=== PATIENT | female | born 1965 | race Caucasian/White ===

== ENCOUNTER 2016-11-14 07:46 | Emergency (ER) | payer SELFPAY ==
[2016-11-14] MEDS ORDERED: OXYCODONE-ACETAMINOPHEN 5-325 MG TABLET PO ONE (08:29)
[2016-11-14] MEDS ORDERED: KETOROLAC TROMETHAMINE 60 MG/2 ML SDV IM ONE (08:29)
--- NOTE | 2016-11-14 08:29 | ER Document Report ---
ED GI/ - General Mode of Arrival: Ambulatory Information source: Patient TRAVEL OUTSIDE OF THE [place] IN LAST 30 DAYS: No - HPI Patient complains to provider of: Flank pain Associated symptoms: Other - See above - General Chief Complaint: Flank Pain Stated Complaint: flank pain Time Seen by Provider: 11/14/16 08:18 Notes: Patient is a 51-year-old female who presents to the emergency department complaining of right-sided flank pain onset at 1800 yesterday. Patient also complains of nausea, dysuria starting last night as well as vomiting at around 0200 this morning and lower abdominal pain. Patient states she got AZO from the drugstore last night to help ease the pain with no relief. Patient states this morning she took one of her 's Percocets to help with the pain. Patient denies fever. Patient reports she has had UTIs in the past. Patient is not currently on any medications. Patient does not have a PCP. (NICK RODRIGUEZ) - Related Data Allergies/Adverse Reactions: No Known Allergies Allergy (Verified 11/14/16 07:51) Past Medical History - General Information source: Patient - Social History Smoking Status: Unknown if Ever Smoked Family History: Reviewed & Not Pertinent Patient has suicidal ideation: No Patient has homicidal ideation: No Musculoskeltal Medical History: Reports Hx Musculoskeletal Trauma Skin Medical History: Reports Hx Cellulitis Traumatic Medical History: Reports: Hx Fractures Past Surgical History: Reports: Hx Section, Hx Hysterectomy, Hx Orthopedic Surgery - right ankle, Hx Tubal Ligation - Immunizations Immunizations up to date: Yes Hx Diphtheria, Pertussis, Tetanus Vaccination: Yes Review of Systems - Review of Systems Constitutional: denies: Fever EENT: No symptoms reported Cardiovascular: No symptoms reported Respiratory: No symptoms reported Gastrointestinal: See HPI, Abdominal pain, Nausea, Vomiting Genitourinary: See HPI, Dysuria, Flank pain Female Genitourinary: No symptoms reported Musculoskeletal: No symptoms reported Skin: No symptoms reported Hematologic/Lymphatic: No symptoms reported Neurological/Psychological: No symptoms reported -: Yes All other systems reviewed and negative Physical Exam - Vital signs Interpretation: Normal - General General appearance: Appears well, Alert - HEENT Head: Normocephalic, Atraumatic - Respiratory Respiratory status: No respiratory distress Chest status: Nontender Breath sounds: Normal Chest palpation: Normal - Cardiovascular Rhythm: Regular Heart sounds: Normal auscultation Murmur: No - Abdominal Inspection: Normal Distension: No distension Bowel sounds: Normal Tenderness: Tender - suprabubic tenderness to palpation Organomegaly: No organomegaly - Back Back: CVA tenderness - right - Extremities General upper extremity: Normal inspection General lower extremity: Normal inspection - Neurological Neuro grossly intact: Yes Cognition: Normal Orientation: AAOx4 [place] Coma Scale Eye Opening: Spontaneous [place] Coma Scale Verbal: Oriented [place] Coma Scale Motor: Obeys Commands [place] Coma Scale Total: 15 Speech: Normal - Psychological Associated symptoms: Normal affect, Normal mood - Skin Skin Temperature: Warm Skin Moisture: Dry Skin Color: Normal Course - Re-evaluation Re-evalutation: 11/14/16 10:30 Patient presents him on spell with a 2 day history of suprapubic pain and dysuria took some [id number] medication which turned her urine orange. Says she has a little low back pain no fever no chills had one episode of vomiting no diarrhea has a history of recurrent urinary tract infections the past but no history of kidney stones. On examination well-appearing nontoxic in no acute distress. She has no acute abdominal guarding rebound rigidity pulsatile dullness or hernias slight tenderness reproducible in the right flank area CT scan shows mild hydronephrosis but no stone she has a large urinary tract infection which I given her Rocephin for she is not septic I do not think she needs be admitted for IV antibiotics acute pyelonephritis I have however given her a follow-up physician to recheck and in 24-48 hours and specifically discussed reasons for ED return sooner 11/14/16 20:17 (SUZY POLLACK) - Vital Signs Vital signs: Temp Pulse Resp BP Pulse Ox 97.4 F 64 18 128/84 H 97 11/14/16 11:00 11/14/16 11:00 11/14/16 11:00 11/14/16 11:00 11/14/16 11:00 - Laboratory Laboratory results interpreted by me: 11/14/16 08:12 Urine Protein 30 H Urine Blood MODERATE H Urine Nitrite POSITIVE H Urine Urobilinogen 4.0 H Ur Leukocyte Esterase MODERATE H Discharge - Discharge Clinical Impression: acute urinary tract infection, low back pain Condition: Stable Disposition: HOME, SELF-CARE Additional Instructions: Low Back Pain Three out of every four people will have an episode of disabling back pain during their lifetime. Most commonly the pain is due to straining of the muscles and ligaments in the low back. Usual treatment includes: (1) Rest on a firm surface. Avoid lying on your stomach. (2) Ice pack the painful area. After a few days, gentle heat may be used intermittently to relax the area, or ice packs can be continued. (3) Medication may be needed -- muscle relaxers and antiinflammatory medicines are commonly used. (4) As the back improves, exercises are prescribed to strengthen the back and abdominal muscles. Your doctor will advise you on the proper care for your back at each stage in your recovery. You may be better in a few days -- or healing may take several weeks. If new symptoms of a "herniated disc" (radiation of pain, numbness, or tingling down the back of the leg or weakness in the leg) occur, you should be re-examined. Further testing may be necessary.Urinary Tract Infection Your evaluation indicates that you have a urinary tract infection. This is due to germs growing in the bladder. This is a common problem. This infection usually responds quickly to antibiotics. Your antibiotic should be taken exactly as prescribed. Drink plenty of fluids -- three to four quarts a day. Occasionally, a bladder anesthetic will be prescribed to help stop the feeling of urgency until the antibiotic has a chance to clear the infection. This may cause your urine to be dark orange. Certain urine infections require a culture. If the doctor obtained a culture, the results will be back in two days. You should call to see if a change in treatment is needed. A repeat urinalysis after you finish treatment is often recommended. The physician will let you know if further testing is required. Call the doctor if you develop fever, chills, flank pain, inability to urinate, or blood in the urine. Prescriptions: Hydrocodone/Acetaminophen [[place] 5-325 mg Tablet] 1 tab PO TID #8 tablet Nitrofurantoin/Nitrofuran Mac [Macrobid 100 mg Capsule] 1 tab PO BID #20 capsule Referrals: [facility] [Provider Group] (Call for appointment to be seen in follow-up in 3-4 days return for increasing worsening or new symptoms) Yareli Attestation: 11/14/16 10:30 I personally performed the services described in the documentation reviewed the documentation recorded by my scribe in my presence and it accurately and completely records my words and actions (SUZY POLLACK) Scribe Documentation - Scribe Written by Scribe:: yareli Lau, 11/14/16, 916 acting as scribe for :: Topher
[2016-11-14] MEDS ORDERED: ONDANSETRON 4 MG TAB.RAPDIS PO ONE (08:30)
[2016-11-14 08:41] LABS: APPEARANCE,URINE SLIGHTLY-CLOUDY; BILIRUBIN,URINE NEGATIVE (NEGATIVE); GLUCOSE, URINE NEGATIVE (NEGATIVE); KETONES,URINE NEGATIVE (NEGATIVE); LEUKOCYTE ESTERASE,URINE MODERATE (NEGATIVE); NITRITE,URINE POSITIVE (NEGATIVE); PROTEIN,URINE 30 mg/dL (NEGATIVE); URINE SPECIFIC GRAVITY 1.009
[2016-11-14] MEDS ORDERED: CEFTRIAXONE INJ 1000 MG VIAL IM ONE (08:55)
[2016-11-14] MEDS ORDERED: LIDOCAINE 1% INJ-PF (10 MG/ML) 30 ML SDV ONE (09:37)
[2016-11-14 11:02] VITALS: BP 128/84
== END 2016-11-14 11:02 | disposition home or self-care (01) ==
LOC: ER 07:46
DX: N39.0 Urinary tract infection, site not specified (principal); M54.5 Low back pain; R10.9 Unspecified abdominal pain; R11.2 Nausea with vomiting, unspecified; Z90.710 Acquired absence of both cervix and uterus
CPT/HCPCS: 99284; 96372; 81001; 74176; J1885; S0119; J0696

== ENCOUNTER 2017-06-14 10:16 | Emergency (ER) | payer SELFPAY ==
--- NOTE | 2017-06-14 10:40 | ER Document Report ---
ED General - General Chief Complaint: Flank Pain Stated Complaint: URINARY SYMPTOMS Time Seen by Provider: 06/14/17 10:38 Mode of Arrival: Ambulatory Information source: Patient Notes: Patient states that she is having right flank pain that radiates into the right lower quadrant. She states she has pain and pressure with urination. She denies any vaginal symptoms. No problems with bowel movements. No fevers. She has some nausea but no vomiting. The pain is worse with urination and better when she does not urinate. It is a sharp and pressure-like sensation and is moderate in intensity. TRAVEL OUTSIDE OF THE [place] IN LAST 30 DAYS: No - Related Data Allergies/Adverse Reactions: No Known Allergies Allergy (Verified 06/14/17 10:18) Past Medical History - Social History Smoking Status: Never Smoker Chew tobacco use (# tins/day): No Frequency of alcohol use: Occasional Drug Abuse: None Family History: Reviewed & Not Pertinent Patient has suicidal ideation: No Patient has homicidal ideation: No Renal/ Medical History: Denies: Hx Peritoneal Dialysis Musculoskeltal Medical History: Reports Hx Musculoskeletal Trauma Skin Medical History: Reports Hx Cellulitis Traumatic Medical History: Reports: Hx Fractures Past Surgical History: Reports: Hx Section, Hx Hysterectomy, Hx Orthopedic Surgery - right ankle, Hx Tubal Ligation - Immunizations Immunizations up to date: Yes Hx Diphtheria, Pertussis, Tetanus Vaccination: Yes Review of Systems - Review of Systems Cardiovascular: denies: Chest pain, Dyspnea Respiratory: denies: Cough, Short of breath Gastrointestinal: denies: Abdominal pain, Constipation -: Yes All other systems reviewed and negative Physical Exam - Vital signs Vitals: Temp Pulse Resp BP Pulse Ox 97.6 F 65 16 147/87 H 97 06/14/17 10:21 06/14/17 10:21 06/14/17 10:21 06/14/17 10:21 06/14/17 10:21 Interpretation: Hypertensive - General General appearance: Appears well, Alert - HEENT Head: Normocephalic, Atraumatic Eyes: Normal Pupils: PERRL - Respiratory Respiratory status: No respiratory distress Chest status: Nontender Breath sounds: Normal Chest palpation: Normal - Cardiovascular Rhythm: Regular Heart sounds: Normal auscultation Murmur: No - Abdominal Inspection: Normal Distension: No distension Bowel sounds: Normal Tenderness: Tender, Other - bilat lq. No: Guarding, Rebound Organomegaly: No organomegaly - Back Back: Normal, Nontender - Extremities General upper extremity: Normal inspection, Nontender, Normal color, Normal ROM , Normal temperature General lower extremity: Normal inspection, Nontender, Normal color, Normal ROM , Normal temperature, Normal weight bearing. No: Geovanna's sign - Neurological Neuro grossly intact: Yes Cognition: Normal Orientation: AAOx4 [place] Coma Scale Eye Opening: Spontaneous [place] Coma Scale Verbal: Oriented [place] Coma Scale Motor: Obeys Commands [place] Coma Scale Total: 15 Speech: Normal Motor strength normal: LUE, RUE, LLE, RLE Sensory: Normal - Psychological Associated symptoms: Normal affect, Normal mood - Skin Skin Temperature: Warm Skin Moisture: Dry Skin Color: Normal Course - Vital Signs Vital signs: Temp Pulse Resp BP Pulse Ox 97.6 F 65 16 147/87 H 97 06/14/17 10:21 06/14/17 10:21 06/14/17 10:21 06/14/17 10:21 06/14/17 10:21 - Laboratory Laboratory results interpreted by me: 06/14/17 10:30 Urine Protein 30 H Urine Blood LARGE H Ur Leukocyte Esterase LARGE H Discharge - Discharge Clinical Impression: UTI (urinary tract infection) Qualifiers: Urinary tract infection type: site unspecified Hematuria presence: with hematuria Qualified Code(s): N39.0 - Urinary tract infection, site not specified ; R31.9 - Hematuria, unspecified; R31.9 - Hematuria, unspecified Condition: Stable Disposition: HOME, SELF-CARE Instructions: Urinary Tract Infection ([facility]) Additional Instructions: Your blood pressure is mildly elevated. Please have this rechecked within 1 week by your doctor. Prescriptions: Cefdinir 300 mg PO BID 7 Days #14 capsule Phenazopyridine HCl [Pyridium 200 mg Tablet] 200 mg PO TID #15 tablet Forms: Elevated Blood Pressure, Return to Work Referrals: HAYLEY KHAN MD [COMMUNITY BASED STAFF] - Follow up in 1 week
[2017-06-14 11:09] LABS: APPEARANCE,URINE CLOUDY; BILIRUBIN,URINE NEGATIVE (NEGATIVE); GLUCOSE, URINE NEGATIVE (NEGATIVE); KETONES,URINE NEGATIVE (NEGATIVE); LEUKOCYTE ESTERASE,URINE LARGE (NEGATIVE); NITRITE,URINE NEGATIVE (NEGATIVE); PROTEIN,URINE 30 mg/dL (NEGATIVE); URINE SPECIFIC GRAVITY 1.006; UROBILINOGEN,URINE NEGATIVE mg/dL (<2.0)
[2017-06-14 11:40] VITALS: BP 147/84
== END 2017-06-14 11:40 | disposition home or self-care (01) ==
LOC: ER 10:16
DX: N39.0 Urinary tract infection, site not specified (principal); R31.9 Hematuria, unspecified; R39.198 Other difficulties with micturition; R10.31 Right lower quadrant pain; R11.0 Nausea
CPT/HCPCS: 81001; 99284

== ENCOUNTER 2017-10-13 19:00 | Emergency (ER) | payer SELFPAY ==
--- NOTE | 2017-10-13 19:37 | ER Document Report ---
HPI - HPI Patient complains to provider of: right toe injury Onset: Other Onset/Duration: Sudden Quality of pain: Throbbing Severity: Severe Pain Level: 5 Context: Patient stubbed right fifth toe on Monday. Complains of pain and swelling, now bruising has extended across the second third and fourth toes. Associated Symptoms: None Exacerbated by: Movement, Walking Relieved by: Remaining still Similar symptoms previously: No Recently seen / treated by doctor: No - ROS ROS below otherwise negative: Yes Systems Reviewed and Negative: Yes All other systems reviewed and negative - CARDIOVASCULAR Cardiovascular: DENIES: Chest pain - RESPIRATORY Respiratory: DENIES: Trouble Breathing - MUSCULOSKELETAL Musculoskeletal: REPORTS: Extremity pain Notes: Right fifth toe and lateral right foot. - DERM Skin Color: Ecchymosis Past Medical History - General Information source: Patient - Social History Smoking Status: Never Smoker Frequency of alcohol use: Occasional Drug Abuse: None Lives with: Family Family History: Reviewed & Not Pertinent Musculoskeltal Medical History: Reports Hx Musculoskeletal Trauma Skin Medical History: Reports Hx Cellulitis Traumatic Medical History: Reports: Hx Fractures Past Surgical History: Reports: Hx Section, Hx Hysterectomy, Hx Orthopedic Surgery - right ankle, Hx Tubal Ligation - Immunizations Immunizations up to date: Yes Hx Diphtheria, Pertussis, Tetanus Vaccination: Yes Vertical Provider Document - CONSTITUTIONAL Agree With Documented VS: Yes Exam Limitations: No Limitations General Appearance: WD/WN, No Apparent Distress - INFECTION CONTROL TRAVEL OUTSIDE OF THE [place] IN LAST 30 DAYS: No - HEENT HEENT: Atraumatic - RESPIRATORY Respiratory: Breath Sounds Normal, No Respiratory Distress - CARDIOVASCULAR Cardiovascular: Regular Rate, Regular Rhythm - MUSCULOSKELETAL/EXTREMETIES Musculoskeletal/Extremeties: Tender, Edema, Eccymosis Notes: Bruising from second right toe to the fifth right toe - NEURO Level of Consciousness: Awake, Alert, Appropriate Notes: Neurovascular and sensation intact to right foot - DERM Integumentary: Warm, Dry Course - Re-evaluation Re-evalutation: 10/13/17 20:20 X-ray showed mildly displaced fracture at base of right fifth toe this was discussed with the patient. Toes camille taped and postop shoe applied. - Vital Signs Vital signs: Temp Pulse Resp BP Pulse Ox 98.5 F 75 16 113/98 H 100 10/13/17 19:06 10/13/17 19:06 10/13/17 19:06 10/13/17 19:06 10/13/17 19:06 Procedures - Immobilization Right Toe 5th digit Pre-Proc Neuro Vasc Exam: Normal Immobilizer type: Post-op shoe, Other - camille taped right 4-5 toes Performed by: PCT Post-Proc Neuro Vasc Exam: Normal Alignment checked and good: Yes Discharge - Discharge Clinical Impression: Toe fracture, right Qualifiers: Encounter type: initial encounter Toe: lesser toe Fracture type: closed Phalanx : proximal Fracture alignment: displaced Qualified Code(s): S92.511A - Displaced fracture of proximal phalanx of right lesser toe(s), initial encounter for closed fracture Condition: Good Disposition: HOME, SELF-CARE Additional Instructions: Keep toes camille taped for comfort Ice and elevate foot Ibuprofen 3 times a day for pain as needed, take with food Follow-up with your doctor or orthopedics if not better in 1 week Return as needed Forms: Return to Work
--- NOTE | 2017-10-13 19:59 | RADIOLOGY REPORT (SQ) ---
EXAM DESCRIPTION: FOOT RIGHT COMPLETE COMPLETED DATE/TIME: 10/13/2017 7:48 pm REASON FOR STUDY: injury COMPARISON: None. NUMBER OF VIEWS: Three views. TECHNIQUE: AP, lateral and oblique radiographic images acquired of the right foot. LIMITATIONS: None. FINDINGS: MINERALIZATION: Normal. BONES: There is a mildly displaced horizontal fracture through the base of the 5th proximal phalanx. Bones otherwise intact. There is mild posterior and plantar calcaneal spurring. JOINTS: Mild diffuse osteoarthritis. SOFT TISSUES: Associated soft tissue swelling. OTHER: No other significant finding. IMPRESSION: 5TH PROXIMAL PHALANX FRACTURE ABOVE. TECHNICAL DOCUMENTATION: JOB ID: [id number] [employer]- All Rights Reserved Reading location - IP/workstation name: [email or web address]
[2017-10-13 20:58] VITALS: BP 150/87
== END 2017-10-13 20:58 | disposition home or self-care (01) ==
LOC: ER 19:00
DX: S92.511A Displaced fracture of proximal phalanx of right lesser toe(s), initial encounter for closed fracture (principal); W22.8XXA Striking against or struck by other objects, initial encounter
CPT/HCPCS: 99283

== ENCOUNTER 2018-04-19 10:39 | Emergency (ER) | payer OTHER ==
--- NOTE | 2018-04-19 11:33 | ER Document Report ---
ED General - General Chief Complaint: Pelvic Pain Stated Complaint: BLOOD IN STOOL Time Seen by Provider: 04/19/18 10:53 TRAVEL OUTSIDE OF THE [place] IN LAST 30 DAYS: No - HPI Patient complains to provider of: Hematuria Onset: Other - This is a 52-year-old female with a history of an umbilical hernia repair 2 months prior as well as a diagnosis of cervical cancer for which she is undergone total hysterectomy. She denies any fevers or chills, abdominal pain, chest pain, shortness of breath, lightheadedness headache diaphoresis or recent trauma to the abdomen or pelvis. She never had anything like this in the past, denies taking any blood thinning medications except for naproxen intermittently for her hip. - Related Data Allergies/Adverse Reactions: No Known Allergies Allergy (Verified 04/19/18 10:43) Past Medical History - General Information source: Patient - Social History Smoking Status: Never Smoker Frequency of alcohol use: None Drug Abuse: None Family History: Reviewed & Not Pertinent Patient has suicidal ideation: No Patient has homicidal ideation: No Renal/ Medical History: Denies: Hx Peritoneal Dialysis Musculoskeletal Medical History: Reports Hx Musculoskeletal Trauma Skin Medical History: Reports Hx Cellulitis Traumatic Medical History: Reports: Hx Fractures Past Surgical History: Reports: Hx Section, Hx Hysterectomy, Hx Orthopedic Surgery - right ankle, Hx Tubal Ligation - Immunizations Immunizations up to date: Yes Hx Diphtheria, Pertussis, Tetanus Vaccination: Yes Review of Systems - Review of Systems -: Yes All other systems reviewed and negative Physical Exam - Vital signs Vitals: Temp Pulse Resp BP Pulse Ox 98.7 F 67 16 155/91 H 97 04/19/18 10:47 04/19/18 10:47 04/19/18 10:47 04/19/18 10:47 04/19/18 10:47 - General General appearance: Appears well In distress: None - HEENT Head: Normocephalic Eyes: Normal Conjunctiva: Normal Cornea: Normal Extraocular movements intact: Yes Eyelashes: Normal Pupils: PERRL - Respiratory Respiratory status: No respiratory distress Chest status: Nontender Breath sounds: Normal Chest palpation: Normal - Cardiovascular Rhythm: Regular Heart sounds: Normal auscultation Murmur: No - Abdominal Inspection: Normal, Morbidly Obese Distension: No distension Tenderness: Nontender - Genitourinary External exam: Normal Speculum exam: Normal Vaginal bleeding: None - Back Back: Normal - Extremities General upper extremity: Normal inspection, Nontender, Normal ROM, Normal strength General lower extremity: Normal inspection, Nontender, Normal ROM, Normal strength - Neurological Neuro grossly intact: Yes Cognition: Normal Orientation: AAOx4 [place] Coma Scale Eye Opening: Spontaneous [place] Coma Scale Verbal: Oriented [place] Coma Scale Motor: Obeys Commands [place] Coma Scale Total: 15 Speech: Normal Cranial nerves: Normal Cerebellar coordination: Normal Motor strength normal: LUE, RUE, LLE, RLE - Psychological Associated symptoms: Normal affect Course - Re-evaluation Re-evalutation: 04/19/18 11:39 This 52-year-old female with a past medical history significant for possible cervical cancer in the past with resection. On examination the patient has a benign abdominal examination she is remarkably well-appearing and hemodynamically stable. Will obtain a urinalysis and perform pelvic examination to see whether or not she has bleeding from her vagina. The vagina is appropriately rugated and normal in appearance. Will plan for this patient to obtain blood work as her urinalysis demonstrates appears to be collin hematuria. She did pass a clot. Bedside ultrasound did not demonstrate any obvious urinary retention no obvious buildup of clots in the pelvis. CBC as well as PT and INR are unremarkable, will presumptively treat for possible hemorrhagic cystitis and urinary tract infection. Did instruct the patient about the importance of obtaining follow-up for possible cystoscopy in the coming week. Will plan for discharge with return precautions and encouraged abstinence of any blood thinning medications. - Vital Signs Vital signs: Temp Pulse Resp BP Pulse Ox 97.8 F 64 16 145/82 H 96 04/19/18 13:12 04/19/18 13:12 04/19/18 13:12 04/19/18 13:12 04/19/18 13:12 - Laboratory Result Diagrams: 04/19/18 11:55 Laboratory results interpreted by me: 04/19/18 11:37 Urine Protein >=500 H Urine Blood SMALL H Discharge - Discharge Clinical Impression: Hemorrhagic cystitis Hematuria Qualifiers: Hematuria type: unspecified type Qualified Code(s): R31.9 - Hematuria, unspecified Condition: Good Disposition: HOME, SELF-CARE Instructions: Antibiotic Therapy ([facility]), Urinary Tract Infection ([facility]) Additional Instructions: Your seen today in the emergency department for the blood in your urine, the blood in your urine may be from an infection. You are being treated as if you have an infection in your bladder. Make sure you are drinking a lot of water so that you are having to urinate at least every 3-4 hours. If you are unable to urinate for 8 hours, if your bleeding becomes worse, if you begin to have pain fevers or chills return to the emergency room as it may be a more serious condition otherwise call for an appointment with a urologist in the coming weeks to look in your bladder with a camera. Prescriptions: Cephalexin Monohydrate [Keflex 500 mg Capsule] 500 mg PO Q12H 5 Days #14 capsule Forms: Return to Work Referrals: REJI RUTLEDGE MD [Primary Care Provider] - Follow up as needed
[2018-04-19 12:06] LABS: ABSOLUTE BASOPHILS # (AUTO) 0.1 10^3/uL (0.0-0.2); ABSOLUTE EOSINOPHILS # (AUTO) 0.2 10^3/uL (0.0-0.6); ABSOLUTE LYMPHOCYTES (AUTO) 1.6 10^3/uL (0.5-4.7); ABSOLUTE MONOCYTES (AUTO) 0.4 10^3/uL (0.1-1.4); ABSOLUTE NEUT (AUTO) 5.6 10^3/uL (1.7-8.2); BASOPHILS % (AUTO) 0.9 % (0-2); EOSINOPHILS % (AUTO) 2.3 % (0-6); HEMATOCRIT 43.9 % (36.0-47.0); HEMOGLOBIN 15.2 g/dL (12.0-15.5); LYMPHOCYTES % (AUTO) 19.9 % (13-45); MEAN CORPUSCULAR HEMOGLOBIN 30.6 pg (27.0-33.4); MEAN CORPUSCULAR HGB CONC 34.8 g/dL (32.0-36.0); MEAN CORPUSCULAR VOLUME 88 fl (80-97); PLATELET COUNT 150 10^3/uL (150-450); RED BLOOD COUNT 4.99 10^6/uL (3.72-5.28); RED CELL DISTRIBUTION WIDTH 12.8 % (11.5-14.0); SEGMENTED NEUTROPHILS % (AUTO) 71.9 % (42-78); TOTAL CELLS COUNTED % (AUTO) 100 %; WHITE BLOOD COUNT 7.8 10^3/uL (4.0-10.5)
[2018-04-19 12:10] LABS: INTERNATIONAL RATION (INR) 0.99; PROTHROMBIN TIME 13.5 SEC (11.4-15.4)
[2018-04-19 12:11] LABS: PARTIAL THROMBOPLASTIN TIME 29.2 SEC (23.5-35.8)
[2018-04-19 12:24] LABS: APPEARANCE,URINE CLOUDY; BILIRUBIN,URINE NEGATIVE (NEGATIVE); GLUCOSE, URINE NEGATIVE (NEGATIVE); KETONES,URINE NEGATIVE (NEGATIVE); LEUKOCYTE ESTERASE,URINE NEGATIVE (NEGATIVE); NITRITE,URINE NEGATIVE (NEGATIVE); PROTEIN,URINE >=500 mg/dL (NEGATIVE); URINE SPECIFIC GRAVITY 1.017; UROBILINOGEN,URINE NEGATIVE mg/dL (<2.0)
[2018-04-19 12:27] LABS: COLOR,URINE RED
[2018-04-19 13:13] VITALS: BP 145/82
== END 2018-04-19 13:14 | disposition home or self-care (01) ==
LOC: ER 10:39
DX: N30.91 Cystitis, unspecified with hematuria (principal); R10.2 Pelvic and perineal pain; Z85.41 Personal history of malignant neoplasm of cervix uteri; Z90.710 Acquired absence of both cervix and uterus
CPT/HCPCS: 36415; 81001; 85025; 85610; 85730; 87086; 99284

== ENCOUNTER 2019-03-24 15:39 | Emergency (ER) | payer OTHER ==
--- NOTE | 2019-03-24 16:20 | ER Document Report ---
ED Medical Screen (RME) - General Chief Complaint: Knee Pain Stated Complaint: RIGHT KNEE PAIN Time Seen by Provider: 03/24/19 16:16 Primary Care Provider: REJI RUTLEDGE MD [Primary Care Provider] - Follow up as needed Mode of Arrival: Wheelchair Information source: Patient Notes: 53-year-old female presents emergency department with right knee pain. Reports she was taking her pull down when she slipped on the vinyl and twisted her knee. Reports severe pain when she tries to walk. Denies past medical history of injury to the knee. Able to flex extend her toe. I have greeted and performed a rapid initial assessment of this patient. A comprehensive ED assessment and evaluation of the patient, analysis of test results and completion of the medical decision making process will be conducted by additional ED providers. Dictation of this chart was performed using voice recognition software; therefore, there may be some unintended grammatical errors. TRAVEL OUTSIDE OF THE [place] IN LAST 30 DAYS: No - Related Data Allergies/Adverse Reactions: No Known Allergies Allergy (Verified 03/24/19 16:10) Past Medical History - Social History Chew tobacco use (# tins/day): No Frequency of alcohol use: Occasional Renal/ Medical History: Denies: Hx Peritoneal Dialysis Musculoskeltal Medical History: Reports Hx Musculoskeletal Trauma Skin Medical History: Reports Hx Cellulitis Traumatic Medical History: Reports: Hx Fractures Past Surgical History: Reports: Hx Section, Hx Hysterectomy, Hx Orthopedic Surgery - right ankle, Hx Tubal Ligation - Immunizations Immunizations up to date: Yes Hx Diphtheria, Pertussis, Tetanus Vaccination: Yes Physical Exam - Vital signs Vitals: Temp Pulse Resp BP Pulse Ox 98.3 F 68 20 148/80 H 97 03/24/19 15:55 03/24/19 15:55 03/24/19 15:55 03/24/19 15:55 03/24/19 15:55 Course - Vital Signs Vital signs: Temp Pulse Resp BP Pulse Ox 98.3 F 68 20 148/80 H 97 03/24/19 15:55 03/24/19 15:55 03/24/19 15:55 03/24/19 15:55 03/24/19 15:55 Doctor's Discharge - Discharge Referrals: REJI RUTLEDGE MD [Primary Care Provider] - Follow up as needed
--- NOTE | 2019-03-24 16:53 | RADIOLOGY REPORT (SQ) ---
EXAM DESCRIPTION: KNEE RIGHT 4 VIEWS COMPLETED DATE/TIME: 03/24/2019 4:33 pm REASON FOR STUDY: twisted, knee pain COMPARISON: None. EXAM PARAMETERS: NUMBER OF VIEWS: Four views. TECHNIQUE: AP, lateral and oblique radiographic images acquired of the right knee. LIMITATIONS: None. FINDINGS: MINERALIZATION: Normal. BONES: No acute fracture or dislocation. No worrisome bone lesions. Mild medial compartment arthros is. JOINTS: Moderate effusion. SOFT TISSUES: No significant soft tissue swelling. No radiopaque foreign body. OTHER: No other significant finding. IMPRESSION: NO FRACTURE. Moderate effusion. TECHNICAL DOCUMENTATION: JOB ID: [id number] [place]-72 2010 [employer]- All Rights Reserved Reading location - IP/workstation name: [email or web address]
[2019-03-24] MEDS ORDERED: ACETAMINOPHEN 325 MG TABLET PO ONE (18:01)
--- NOTE | 2019-03-24 18:03 | ER Document Report ---
HPI - HPI Time Seen by Provider: 03/24/19 16:16 Pain Level: 5 Context: Patient is a 53-year-old female who presents to the emergency department with a chief complaint of right knee pain. She was trying to lift a pole and slipped in the mud and fell. She denies any past medical history and does not take any medications. She took some ibuprofen at 1300 today to help with her pain. She also fell back and feels like she has a muscle spasm in her back. - CONSTITUTIONAL Constitutional: DENIES: Fever, Chills - EENT EENT: DENIES: Sore Throat - NEURO Neurology: DENIES: Headache - CARDIOVASCULAR Cardiovascular: DENIES: Chest pain - RESPIRATORY Respiratory: DENIES: Trouble Breathing, Coughing - GASTROINTESTINAL Gastrointestinal: DENIES: Abdominal Pain, Nausea, Patient vomiting - REPRODUCTIVE Reproductive: DENIES: : - MUSCULOSKELETAL Musculoskeletal: REPORTS: Extremity pain - Right knee, Back Pain - Low back. DENIES: Neck Pain, Swelling - DERM Skin Color: Normal Skin Problems: None Past Medical History - General Information source: Patient - Social History Smoking Status: Never Smoker Chew tobacco use (# tins/day): No Frequency of alcohol use: Occasional Family History: Reviewed & Not Pertinent Patient has suicidal ideation: No Patient has homicidal ideation: No Renal/ Medical History: Denies: Hx Peritoneal Dialysis Musculoskeletal Medical History: Reports Hx Musculoskeletal Trauma Skin Medical History: Reports Hx Cellulitis Traumatic Medical History: Reports: Hx Fractures Past Surgical History: Reports: Hx Section, Hx Hysterectomy, Hx Orthopedic Surgery - right ankle, Hx Tubal Ligation - Immunizations Immunizations up to date: Yes Hx Diphtheria, Pertussis, Tetanus Vaccination: Yes Vertical Provider Document - CONSTITUTIONAL Agree With Documented VS: Yes Exam Limitations: No Limitations General Appearance: No Apparent Distress - INFECTION CONTROL TRAVEL OUTSIDE OF THE [place] IN LAST 30 DAYS: No - HEENT HEENT: Atraumatic, Normocephalic - RESPIRATORY Respiratory: Breath Sounds Normal, No Respiratory Distress - CARDIOVASCULAR Cardiovascular: Regular Rate, Regular Rhythm Pulses: Normal: Dorsalis pedis - MUSCULOSKELETAL/EXTREMETIES Musculoskeletal/Extremeties: Non-Tender, Tender - Low back and right knee. negative: FROM - Decreased range of motion to right knee due to pain - NEURO Level of Consciousness: Awake, Alert, Appropriate - DERM Integumentary: Warm, Dry, No Rash Course - Re-evaluation Re-evalutation: 03/24/19 Patient's knee x-ray is negative for any acute fracture at this time. I offered the patient crutches, but she states that she has a walker that she can use at home. I will also give her Flexeril to help with her muscle spasms. Ibuprofen and Tylenol will be used for pain relief. She will follow-up with her primary care doctor in regards to this visit. I also provided her a knee immobilizer and Yang wrap. No vascular compromise noted. Follow-up precautions were given. Verbal discharge instructions were given to the patient. They verbalized understanding. They are stable for discharge. - Vital Signs Vital signs: Temp Pulse Resp BP Pulse Ox 98.3 F 68 20 148/80 H 97 03/24/19 15:55 03/24/19 15:55 03/24/19 15:55 03/24/19 15:55 03/24/19 15:55 Discharge - Discharge Clinical Impression: Right knee pain Qualifiers: Chronicity: acute Qualified Code(s): M25.561 - Pain in right knee Fall Qualifiers: Encounter type: initial encounter Qualified Code(s): W19.XXXA - Unspecified fall, initial encounter Back pain Qualifiers: Back pain location: low back pain Chronicity: acute Back pain laterality: unspecified Sciatica presence: without sciatica Qualified Code(s): M54.5 - Low back pain Condition: Stable Disposition: HOME, SELF-CARE Instructions: Ice & Elevation ([facility]), Knee Immobilizing Splint ([facility]) Additional Instructions: You are seen today in the emergency department after a fall. Your knee shows that you have some swelling in the joint area. Please rest, apply ice, elevate your leg, and wear an Yang wrap to help with the pain. Continue to use your walker to help you walk around. You can take Tylenol 1000 mg and ibuprofen 600 mg every 6 hours for your pain. You are also being sent home with Flexeril, muscle relaxer. Please follow-up with your primary care provider. Please make sure you go to physical therapy and ask if they can also help you with your knee. Prescriptions: Cyclobenzaprine HCl [Flexeril 10 mg Tablet] 10 mg PO TIDP PRN #15 tab PRN Reason: Forms: Return to Work Referrals: REJI RUTLEDGE MD [NO LOCAL MD] - Follow up in 3-5 days
[2019-03-24] MEDS ORDERED: CYCLOBENZAPRINE HCL 10 MG TABLET PO ONE (18:23)
[2019-03-24 18:25] VITALS: BP 129/62
== END 2019-03-24 18:29 | disposition home or self-care (01) ==
LOC: ER 15:39
DX: M25.561 Pain in right knee (principal); M54.5 Low back pain; W01.0XXA Fall on same level from slipping, tripping and stumbling without subsequent striking against object, initial encounter; Y93.89 Activity, other specified
CPT/HCPCS: 99283; 73564; L1830

== ENCOUNTER 2019-07-16 23:02 | Emergency (ER) | payer OTHER ==
[2019-07-16 23:16] VITALS: BP 145/65
[2019-07-17 01:16] LABS: APPEARANCE,URINE SLIGHTLY-CLOUDY; BILIRUBIN,URINE NEGATIVE (NEGATIVE); COLOR,URINE AMBER; GLUCOSE, URINE NEGATIVE (NEGATIVE); KETONES,URINE NEGATIVE (NEGATIVE); LEUKOCYTE ESTERASE,URINE SMALL (NEGATIVE); NITRITE,URINE POSITIVE (NEGATIVE); PROTEIN,URINE >=500 mg/dL (NEGATIVE)
[2019-07-17] MEDS ORDERED: ACETAMINOPHEN 325 MG TABLET PO ONE (01:31)
== END 2019-07-17 02:17 | disposition left against medical advice (07) ==
LOC: ER 23:02
DX: Z53.21 Procedure and treatment not carried out due to patient leaving prior to being seen by health care provider (principal)
CPT/HCPCS: 81001